=== PATIENT | female | born 1980 | race Caucasian/White ===

== ENCOUNTER 2024-01-09 14:46 | Emergency (ER) | payer MEDICAID, OTHER ==
[~2024-01-09] VITALS: Ht 157.5 cm; Wt 104.3 kg
[2024-01-09 15:04] VITALS: BP 135/79; TEMP 98.2
[2024-01-09] MEDS ORDERED: OXYM15MI4 NS (15:52)
[2024-01-09] MEDS ORDERED: ALBU18HF2 INH (15:52)
[2024-01-09 16:03] VITALS: O2SAT 98
== END 2024-01-09 16:06 | disposition home or self-care (01) ==
LOC: ER 14:46
DX: J32.9 Chronic sinusitis, unspecified (principal); Z88.0 Allergy status to penicillin